=== PATIENT | female | born 1975 | race Caucasian/White ===

== ENCOUNTER 2017-10-04 21:16 | Emergency (ER) | payer MEDICAID ==
[2017-10-04] MEDS: HYDROCODONE/APAP (5/325) TAB PO (21:42)
[2017-10-04] MEDS: KETOROLAC 60 MG INJ IM (21:43)
== END 2017-10-04 22:16 | disposition home or self-care (01) ==
LOC: FTE 21:16
DX: M25.511 Pain in right shoulder (principal); J45.909 Unspecified asthma, uncomplicated
CPT/HCPCS: 96372; 99284-25